=== PATIENT | male | born 1995 | race Caucasian/White ===

== ENCOUNTER 2023-08-30 10:34 | Outpatient (CLI) | payer OTHER | END 2023-08-30 10:49 | disposition home or self-care (01) | LOC: MRI 10:34 | PROVIDERS: ATTEND Specialist | DX: M47.22 Other spondylosis with radiculopathy, cervical region (principal); M47.812 Spondylosis without myelopathy or radiculopathy, cervical region; M50.220 Other cervical disc displacement, mid-cervical region, unspecified level | CPT/HCPCS: 72141 ==